=== PATIENT | male | born 1990 | race Caucasian/White ===

== ENCOUNTER 2021-09-02 17:20 | Emergency (ER) | payer BC ==
[~2021-09-02] VITALS: Ht 180.3 cm; Wt 88.5 kg
[2021-09-02 17:30] VITALS: BP 121/74
[2021-09-02] MEDS ORDERED: LIDOCAINE 2% JEL 5 ML TUBE ONE (17:38)
--- NOTE | 2021-09-02 18:00 | NUR ---
Affected finger cleaned. Dermabond applied by provider. NO Active bleeding noted
[2021-09-02] MEDS ORDERED: TDAP [DIPH/PERTUSSIS/TET] 0.5 ML VIAL IM ONE (18:27)
[2021-09-02] MEDS: TDAP [DIPH/PERTUSSIS/TET] 0.5 ML VIAL IM ONE (18:34)
[2021-09-02] MEDS: LIDOCAINE/PRILOCAINE (5GM) 5 GM TUBE TP ONE (18:34)
--- NOTE | 2021-09-02 18:45 | NUR ---
Patient discharged to home in stable condition. Written and verbal after care instructions given. Patient verbalizes understanding of instruction.
== END 2021-09-02 18:49 | disposition home or self-care (01) ==
LOC: ER 17:22
DX: S61.211A Laceration without foreign body of left index finger without damage to nail, initial encounter (principal); Z88.0 Allergy status to penicillin; W26.0XXA Contact with knife, initial encounter; Y93.89 Activity, other specified; Y92.89 Other specified places as the place of occurrence of the external cause; Y99.8 Other external cause status
CPT/HCPCS: 12001; 90471; 90715; 99283; A6403